=== PATIENT | female | born 1955 | race Caucasian/White ===

== ENCOUNTER 2021-12-06 09:57 | Emergency (ER) | payer MEDICARE, MEDICAID, SELFPAY ==
[2021-12-06 09:58] VITALS: BP 154/96; PULSE 80; RESP 18; TEMP 36.4; O2SAT 98; BMI 41.8
--- NOTE | 2021-12-06 10:08 | CT_ITS ---
STUDY: CT BRAIN WITHOUT CONTRAST REASON FOR EXAM: Female, 66 years old. Closed head injury, LOC, amnesia RADIATION DOSAGE (If Supplied By Facility): CTDIvol = ( 44.99 ) mGy, DLP = ( 863.60 ) mGycm TECHNIQUE: Transaxial CT imaging of the brain was performed without administration of intravenous contrast material. Individualized dose optimization techniques were used for this CT. COMPARISON: No relevant priors. FINDINGS: Normal soft tissue structures. Normal calvarium. Normal size ventricles and extra-axial spaces for the patient''s age. Normal white matter tracts of the cerebral hemispheres. Normal basal ganglia and thalami. Normal brainstem. Normal cerebellum. There is no intracranial hemorrhage. There are no findings of an acute ischemic infarction. Normal visualized paranasal sinuses. CT/Brain/Head without Contrast IMPRESSION: No acute intracranial process. Electronically Signed: Mo Luu, at 10:46 EST Tel , Service support ,
--- NOTE | 2021-12-06 10:09 | EX.ED.GENINJ ---
HPI History of Present Illness Chief Complaint: Fall Detail of Chief Complaint: Trauma status post fall Informant: patient and EMS Onset/Context/Timing Onset: Today Mechanism/Context: Blunt Injury and Fall Location: Face/head Current Severity: Gone Maximum Severity: Moderate Worsened by: Initial impact Relieved by: Not applicable Associated Symptoms Associated Symptoms: Positive for Loss of consciousness and Amnesia; Negative for Parasthesias, Weakness, Loss of function and Inability to ambulate Length of loss of consciousness: Unknown Narrative Narrative: Patient is an elderly woman who lives alone. 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 She states her prescriptions ran out. He does not have an appointment to see her physician until March. She states she is on Risperdal and Effexor. She does not know the name of her anticonvulsant medication. She complains of pain. She denies headache. She denies double vision, blurred vision loss of vision. Denies ringing or ears or decreased hearing. She denies difficulty breathing out of her nose. She denies any dental trauma. She denies neck pain. She denies numbness or tingling in arms or legs. She denies chest pain or shortness of breath. She states she had a recent tetanus shot due to a fall. She does have an injury that she localizes ulnar aspect of the left hand near the head of the fifth metacarpal. She also has an abrasion to the nose. Tetanus Immunization: <5 years Prior similar symptoms: No Recent Illness/Hospitalization: Yes [facility] Medical History (Updated 12/06/21 @ 10:[address] Leon Samuels MD) Seizures Home Medications risperidone 0.5 mg PO DAILY 12/06/21 [History Last Taken Unknown] venlafaxine 75 mg PO TID 12/06/21 [History Last Taken Unknown] Allergy/AdvReac Type Severity Reaction Status Date / Time No Known Allergies Allergy Verified 12/06/21 10:03 Family History unable to obtain unable to obtain Social History (Updated 12/06/21 @ 10:[address] Leon Samuels MD) household members: none Smoking Status: Never smoker substance use type: does not use ROS ROS ED Review of Systems ROS Unobtainable: other Details: Patient is cognitively impaired and limits history Constitutional Constitutional ED: Denies chills, fever(s), subjective, sweats or weight loss Eyes Eyes: Denies blurry vision or change in vision ENT ENT ED: Denies ear pain, rhinorrhea or sore throat Cardiovascular Cardiovascular: Denies chest pain or palpitations Respiratory/Chest Respiratory/Chest: Denies cough, dyspnea or dyspnea on exertion Gastrointestinal Gastrointestinal: Denies abdominal pain, diarrhea, nausea or vomiting Genitourinary Genitourinary ED: Denies dysuria, hematuria or urinary frequency Musculoskeletal Musculoskeletal: Denies arthralgias, back pain, myalgias or neck pain Integumentary Reports Abrasions; Denies abscess or rash Neurologic Neurologic: Denies headache(s) or weakness Hematologic/Lymphatic Hematologic/Lymphatic: Denies easy bleeding or easy bruising EXAM Physical Exam Const Vital Signs: 12/06/21 09:58 12/06/21 10:17 12/06/21 10:19 Temperature 97.5 F L Temperature Source Oral Pulse Rate 80 Respiratory Rate 18 Respiratory Effort Normal Non-Labored Normal Blood Pressure 154/96 H Blood Pressure Mean 115 Pulse Ox 98 Oxygen Delivery Method Room Air Room Air Positive well nourished, well developed and obese General Appearance ED: well developed and NAD Nutritional Appearance: obese HEENT Reports TM's clear HEENT Narrative: Patient has poor dentition. There is no evidence of acute dental trauma. Uvula is midline. trauma; Negative for tenderness Nose: Negative for septum abnormal Tympanic Membrane ED: Yes TM's clear Eyes PERRL and EOMs intact bilaterally General Eye ED: Yes other Other Details: There is no subconjunctival hemorrhage. There is no nystagmus. Neck full ROM General: Negative for tenderness Chest Wall inspection of chest normal and palpation of chest normal Resp normal respiratory effort and clear to auscultation bilaterally Cardio regular rhythm, S1 normal heart sound, S2 normal heart sound and no murmurs Rate: regular rate GI normal to inspection, nondistended, normoactive bowel sounds, non-tender and non-distended GI Narrative: There is no pain no patient of the pelvis. Auscultation: normoactive bowel sounds Palpation: soft Back/Spine normal to inspection and no thoracic nor lumbar tenderness General Back: Negative for CVA tenderness Extremity full ROM; Negative for normal to inspection Extremity Narrative: Abrasion ulnar aspect left hand proximity of the fifth metacarpal head. General Extremety ED: Negative for deformity, edema or tenderness General Extremity: Negative for deformity or edema Neuro CN's II-XII intact bilaterally, moves all extremities and no sensory deficits noted Neuro Narrative: There is no dysmetria. Gait was observed and normal. Sensorium / Orientation: alert, oriented to person and oriented to place Motor Exam: strength 5/5 throughout Plantar Reflex: Downgoing: bilateral (There is no clonus) Psych Attitude: No agitated Mood & Affect: Negative for anxious Skin no rashes or lesions noted, No no wounds and No no jaundice Trauma: abrasion MDM MDM MDM Narrative Medical decision making narrative: Since patient is cognitively impaired at reported loss of conscious amnestic with head trauma will obtain CT of the head to rule out intracranial bleed. Tetanus is up-to-date. Charge nurse raise concern for thyroid disease. TSH was ordered. After reviewing pharmacy history patient has never been prescribed levothyroxine. TSH level was canceled and patient was allowed to go home since CAT scan was normal. Radiography Diagnostic Testing: Clinical Impression(s) from Imaging Studies Brain CT 12/06/21 10:08 IMPRESSION: No acute intracranial process. Electronically Signed: Mo Luu, at 10:46 EST Tel , Service support , CT of the head without contrast was reviewed by me and no obvious abnormality was noted. There is no evidence of subdural hematoma, epidural hematoma, contusion or traumatic subarachnoid hemorrhage. There is no fluid noted in the sinuses. Awaiting formal read by radiologist, [id number] Discharge Plan Triage Chief Complaint: Fall ED Provider: Leon Samuels Dx/Rx/DC Orders Clinical Impression: Closed head injury with brief loss of consciousness, Abrasion, face w/o infection, Abrasion of left hand, initial encounter Prescriptions: No Action venlafaxine 75 mg capsule,extended release 24hr 75 mg PO TID RF: 0 risperidone 0.5 mg tablet 0.5 mg PO DAILY RF: 0 Primary Care Provider: Sam Cazares Referrals: Sam Cazares MD [Primary Care Provider] - As Needed Disposition Disposition: Home, Self Care
--- NOTE | 2021-12-06 10:55 | ED.RN ---
pt refused lab work
--- NOTE | 2021-12-06 11:05 | NURSING ---
CALLED [facility], ASKED AYESHA TWICE TO FAX MED LIST
--- NOTE | 2021-12-06 11:06 | NURSING ---
[id number] CALLED [facility], ASKED CALVIN TO FAX MED LIST
--- NOTE | 2021-12-06 11:19 | ED.RN ---
officer lesli giving pt a ride home.
== END 2021-12-06 11:21 | disposition home or self-care (01) ==
PROVIDERS: Emergency Provider Emergency Medicine; PCP Internal Medicine; Visit Provider Emergency Medicine
DX: S06.9X9A Unspecified intracranial injury with loss of consciousness of unspecified duration, initial encounter (principal); S00.81XA Abrasion of other part of head, initial encounter; S00.31XA Abrasion of nose, initial encounter; S60.512A Abrasion of left hand, initial encounter; E66.9 Obesity, unspecified; W19.XXXA Unspecified fall, initial encounter
CPT/HCPCS: 70450; 99284